=== PATIENT | female | born 1960 ===

== ENCOUNTER 2019-03-29 14:33 | Outpatient (REF) | payer OTHER, SELFPAY ==
[2019-03-29 21:22] LABS: HCT 36.5 % (36.0-46.0); Mean Corp. HGB Concentration 32.9 g/dL (32.0-36.0); Mean Corpuscular Hemoglobin 29.9 pg (27.0-33.0); Mean Corpuscular Volume 90.8 fL (80-95); Mean Platelet Volume 10.8 fL (8.0-11.0); Platelet Count 264 x1000/uL (130-400); RBC 4.02 m/cumm (4.00-5.20); RBC Distribution Width 12.6 % (11.7-14.6); White Blood Cell Count 5.54 k/cumm (4.4-10.8)
[2019-03-29 21:35] LABS: Hemoglobin A1C 5.7 % (4.5-6.2)
[2019-03-29 22:09] LABS: ALT 34 U/L (14-59); AST 19 U/L (15-37); Albumin 3.7 g/dL (3.4-5.0); Alkaline Phosphatase 112 U/L (46-116); BUN 15 mg/dL (7-18); Bilirubin, Total 0.2 mg/dL (0.2-1.0); Calcium 9.2 mg/dL (8.5-10.1); Calculated LDL 111 mg/dL; Chloride 105 mmol/L (98-107); Cholesterol 165 mg/dL (50-200); Ferritin 71 ng/mL (8-388); Folate 14.4 ng/mL (8.6-20.0); Glucose 82 mg/dL (70-100); HDL Cholesterol 42 mg/dL (40-60); Potassium 4.1 mmol/L (3.5-5.1); Sodium 142 mmol/L (136-145); Triglyceride 63 mg/dL (30-150); Vitamin B12 691 pg/mL (193-986)
[2019-04-01 07:57] LABS: Vitamin D 25 Total 21.7 ng/ml (30-100)
== END 2019-03-29 14:53 ==
LOC: NCHCN 14:33
PROVIDERS: PCP Family Medicine; Visit Provider Family Medicine
DX: Z00.00 Encounter for general adult medical examination without abnormal findings (principal); D50.9 Iron deficiency anemia, unspecified; E55.9 Vitamin D deficiency, unspecified; G60.9 Hereditary and idiopathic neuropathy, unspecified; I10 Essential (primary) hypertension; D75.89 Other specified diseases of blood and blood-forming organs; E66.9 Obesity, unspecified; R53.83 Other fatigue
CPT/HCPCS: 80053; 80061; 82306; 85027; 82607; 82728; 82746; 83036

== ENCOUNTER 2020-04-10 09:11 | Outpatient (REF) | payer OTHER, SELFPAY ==
[2020-04-10 21:37] LABS: MCH 29.8 pg (27.0-33.0); MCHC 33.3 % (32.0-36.0); MCV 89.4 fL (80-95); MPV 10.5 fL (8.0-11.0); Platelet Count 239 10^3/uL (130-400); RBC 4.36 10^6/uL (3.93-5.22); RDW 12.3 % (11.7-14.6); RDW-SD 40.4 fL; WBC 4.96 10^3/uL (4.4-10.8)
[2020-04-10 21:55] LABS: Hemoglobin A1C 5.6 % (<5.7)
[2020-04-10 22:01] LABS: Ferritin 97 ng/mL (8-252)
[2020-04-10 22:20] LABS: Iron 81 ug/dL (50-170); Total Iron Binding Capacity 380 ug/dL (250-450); Transferrin Sat 21 % (15-50)
[2020-04-13 08:19] LABS: Vitamin D 25 Total 18.7 ng/ml (30-100)
== END 2020-04-10 09:31 ==
LOC: NCHCN 09:11
PROVIDERS: PCP Family Medicine; Visit Provider Family Medicine
DX: Z00.00 Encounter for general adult medical examination without abnormal findings (principal); D50.9 Iron deficiency anemia, unspecified; R73.09 Other abnormal glucose; E55.9 Vitamin D deficiency, unspecified; I10 Essential (primary) hypertension; E03.9 Hypothyroidism, unspecified; E66.9 Obesity, unspecified; Z93.4 Other artificial openings of gastrointestinal tract status
CPT/HCPCS: 82306; 85027; 82728; 83036; 83540; 83550